=== PATIENT | male | born 1965 | race Caucasian/White ===

== ENCOUNTER 2021-09-07 11:16 | Day surgery (SDC) | payer BC ==
[2021-09-07] MEDS ORDERED: Propofol 200 MG/20 ML SDV IV ONE (11:17)
[2021-09-07] MEDS ORDERED: Propofol 200 MG/20 ML SDV ONE ×2 (11:27→12:21)
[2021-09-07] MEDS ORDERED: Midazolam 1 MG/ML 2 ML SDV ONE (11:27)
[2021-09-07] MEDS ORDERED: Sodium Chloride 0.9% 10 ML Syringe FLUSH PRN (11:30)
[2021-09-07] MEDS: Lactated Ringers 1,000 ML IV SCH (11:36)
[2021-09-07 13:22] VITALS: BP 151/103; PULSE 68
== END 2021-09-07 13:33 | disposition home or self-care (01) ==
LOC: KA.SDS 11:16
PROVIDERS: ATTEND Surgery
DX: D12.3 Benign neoplasm of transverse colon (principal); K57.31 Diverticulosis of large intestine without perforation or abscess with bleeding; K64.8 Other hemorrhoids; M10.9 Gout, unspecified; E78.2 Mixed hyperlipidemia; G57.90 Unspecified mononeuropathy of unspecified lower limb; Z91.09 Other allergy status, other than to drugs and biological substances; Z98.890 Other specified postprocedural states; Z87.891 Personal history of nicotine dependence
CPT/HCPCS: J2250; J2704; J7120